=== PATIENT | female | born 1970 | race Caucasian/White ===

== ENCOUNTER → 2020-01-12 | Outpatient (CLI) | payer OTHER ==
--- NOTE | 2020-01-12 14:26 | REPMRS ---
Patient History The patient states she has not had a clinical breast exam in over a year. Family history of breast cancer under age 50 in maternal aunt, breast cancer at age 50 or over in maternal aunt, breast cancer under age 50 in maternal cousin, colorectal cancer at age 50 or over in paternal uncle, colorectal cancer at age 50 or over in paternal grandfather. Benign stereotactic core biopsy of the left breast, 2008. 3D TOMOSYNTHESIS WAS PERFORMED. [facility] lifetime risk for breast cancer is 12.8%. Volpara density b. Digital Woman Screen Mammo: January 12, 2020 - Exam #: [id number] Bilateral CC and MLO view(s) were taken. Technologist: Richard Barahonaologist Prior study comparison: October 05, 2014, digital woman screen mammo performed at [facility]. October 02, 2013, digital woman screen mammo performed at [facility]. FINDINGS: The breast tissue is heterogeneously dense. This may lower the sensitivity of mammography. There has been no change in the appearance of the mammogram from the prior studies. There is a moderate amount of residual fibroglandular tissue which is fairly symmetric. There is no interval development of dominant mass, areas of architectural distortion, or clustered microcalcification typical of malignancy. Assessment: BI-RADS/ACR category 1 mammogram. Negative Mammogram. Recommendation Routine screening mammogram in 1 year (for women over age 40). This mammogram was interpreted with the aid of an FDA-approved computer-aided dectection system. Electronically Signed By: Charlie Villa MD 01/12/20 [id number]
== END ==
LOC: M WHC 12:54
PROVIDERS: ATTEND Physician Assistant
DX: Z12.31 Encounter for screening mammogram for malignant neoplasm of breast (principal)